=== PATIENT | female | born 1980 | race Caucasian/White ===

== ENCOUNTER 2016-07-15 18:53 | Emergency (ER) | payer BC ==
[~2016-07-15] VITALS: Ht 172.7 cm; Wt 81.8 kg
[~2016-07-15 18:53] MED LIST: ANTIVERT 12.512.5 MG PO; ANTIVERT 25MG25 MG PO; ASPIR-LOW81 MG PO; ASPIR-LOX325 MG PO; ATIVAN 0.50.5 MG/TAB PO; BENTYL 20MG20 MG/TAB; CEPHALEXIN500 M1 PO; CLEOCIN HCL300 MG PO; DILAUDID 4MG TAB4 MG PO; DOXYCYCLINE 10100 MG PO; HYDROMORPHONE HY8 MG; IBUPROFEN; KEPPRA1000 MG PO; KEPPRA500 MG PO; KEPPRA750 MG PO; LAMICTAL100 MG PO; LAMICTAL200 MG PO; LASIX 20MG TABL20 MG PO; LEVOTHYROXINE PO; LEVOXYL0.088 MG; LOPRESSOR 550 MG/TAB PO; MORPHINE 1515 MG/TAB PO; NAPROXEN ER500 MG PO; PEPCID 20MG TAB20 MG PO; PERCOCET 325 MG1 TA2 PO; PERCOCET 325 MG1 TAB PO; PHENERGAN 25 TA25 MG PO; PHENERGAN25 MG RC; PREDNISONE20 MG PO; PROAIR HFA0.09 MG/AC IH; REGLAN 10M10 MG/2 ML IV; SYNTHROID0.075 MG/T PO; SYNTHROID0.125 MG/T PO; TEGRETOL 2200 MG/TA1 PO; VALIUM 5MG T5 MG/TAB PO; ZANTAC 150150 MG PO; ZANTAC 150MG T150 MG PO; ZITHROMAX 250M250 MG PO; ZITHROMAX Z PA250 MG PO; ZOFRAN 4MG T4 MG/TAB PO; ZOFRAN ODT4 MG PO; [UNRECOGNIZED DRUG - OTHER]
[2016-07-15 18:55] VITALS: TEMP 98.3
[2016-07-15 19:46] LABS: PH 5 (5-8); SQUAMOUS EPITHELIAL 0-2 /hpf; URINE APPEARANCE Clear; URINE BACTERIA Rare /hpf; URINE BILIRUBIN Negative (NEGATIVE); URINE BLOOD 1+ (NEGATIVE); URINE COLOR Yellow; URINE GLUCOSE Negative (NEGATIVE); URINE KETONE Negative (NEGATIVE); URINE RBC 0-2 /hpf; URINE UROBILINOGEN Negative (NEGATIVE); URINE WBC 0-2 /hpf
[2016-07-15 19:48] LABS: BASO # 0.3 (0.0-0.2); BASO % 1.9 % (0.0-2.0); EOS # 0.5 (0.0-0.7); GRAN # 9.2 (1.4-6.5); GRAN % 67.4 % (42.2-75.2); HEMATOCRIT 40.3 % (37.0-47.0); HEMOGLOBIN 13.7 g/dl (12.5-16.0); LYMPH # 2.8 (1.2-3.4); LYMPH % 20.9 % (20.0-51.0); MEAN CELL VOLUME 100 fl (80.0-100.0); MEAN CORPUSCULAR HEMOGLOBIN 34 pg (27.0-31.0); MEAN CORPUSCULAR HGB CONC 34 g/dl (33.0-37.0); MEAN PLATELET VOLUME 11.2 fl (7.4-10.4); MONO # 0.7 (0.1-0.6); MONO % 5.3 % (1.7-9.3); PLATELET COUNT 388 K/mm3 (130-400); RED BLOOD COUNT 4.03 M/mm3 (4.10-5.30); REDCELL DISTRIBUTION WIDTH-CV 13.8 % (11.5-14.5); WHITE BLOOD COUNT 13.6 K/mm3 (4.8-10.8)
[2016-07-15 19:54] LABS: ADJUSTED CALCIUM 9.2 mg/dL (8.4-10.2); ALANINE AMINOTRANSFERASE 31 U/L (9-52); ALKALINE PHOSPHATASE 46 U/L (50-136); ANION GAP 14 mmol/L (7-16); BILIRUBIN,TOTAL 0.6 mg/dL (0.0-1.0); BLOOD UREA NITROGEN 11 mg/dL (7-17); CARBON DIOXIDE 21 mmol/L (22-30); CHLORIDE 107 mmol/L (98-107); CREATININE, serum 1.23 mg/dL (0.52-1.25); GLUCOSE 90 mg/dL (74-106); LIPASE 130 U/L (23-300); POTASSIUM 3.7 mmol/L (3.4-5.0); SODIUM 142 mmol/L (137-145); TOTAL PROTEIN 8.3 gm/dL (6.4-8.2)
[2016-07-15 19:57] LABS: C-REACTIVE PROTEIN < 0.5 mg/dL (0.0-0.9)
[2016-07-15] MEDS ORDERED: ZOFRAN 4MG T4 MG/TAB PO (21:02)
[2016-07-15] MEDS ORDERED: PROTONIX 40MG T40 MG PO (21:02)
[2016-07-15] MEDS ORDERED: PERCOCET 325 MG1 TA2 PO (21:02)
[2016-07-15 21:18] VITALS: BP 110/78; PULSE 72
== END 2016-07-15 21:23 | disposition home or self-care (01) ==
LOC: COL.ER 18:53
PROVIDERS: Emergency Medicine
DX: R10.12 Left upper quadrant pain (principal); R19.7 Diarrhea, unspecified
CPT/HCPCS: J1170; J2405; J7030; Q9967

== ENCOUNTER 2016-07-16 22:19 | Observation (INO) | payer BC ==
[~2016-07-16] VITALS: Ht 172.7 cm; Wt 72.8 kg
[~2016-07-16 22:19] MED LIST changes: +PROTONIX 40MG T40 MG PO
[2016-07-16 23:44] LABS: BASO # 0.2 (0.0-0.2); EOS # 0.6 (0.0-0.7); EOS % 4.6 % (0-4.0); GRAN # 6.4 (1.4-6.5); GRAN % 53.3 % (42.2-75.2); LYMPH # 4.2 (1.2-3.4); LYMPH % 34.8 % (20.0-51.0); MEAN CELL VOLUME 99 fl (80.0-100.0); MEAN CORPUSCULAR HGB CONC 34 g/dl (33.0-37.0); MEAN PLATELET VOLUME 11.1 fl (7.4-10.4); MONO # 0.6 (0.1-0.6); PLATELET COUNT 309 K/mm3 (130-400); RED BLOOD COUNT 3.52 M/mm3 (4.10-5.30)
[2016-07-16 23:47] LABS: HEMOGLOBIN 11.8 g/dl (12.5-16.0); MEAN CORPUSCULAR HEMOGLOBIN 34 pg (27.0-31.0)
[2016-07-16 23:54] LABS: ADJUSTED CALCIUM 8.8 mg/dL (8.4-10.2); ALBUMIN 4.3 gm/dL (3.5-5.0); BILIRUBIN,TOTAL 0.5 mg/dL (0.0-1.0); CREATININE, serum 1.17 mg/dL (0.52-1.25); POTASSIUM 3.4 mmol/L (3.4-5.0)
[2016-07-17] VITALS (7 sets, daily range): BP systolic 94–124; BP diastolic 47–67; PULSE 53–75; TEMP 97.8–99
[2016-07-17 00:21] LABS: PH 5 (5-8); SQUAMOUS EPITHELIAL 0-2 /hpf; URINE APPEARANCE Clear; URINE BACTERIA Rare /hpf; URINE BILIRUBIN Negative (NEGATIVE); URINE BLOOD 1+ (NEGATIVE); URINE COLOR Yellow; URINE GLUCOSE Negative (NEGATIVE); URINE KETONE Negative (NEGATIVE); URINE RBC 0-2 /hpf; URINE UROBILINOGEN Negative (NEGATIVE); URINE WBC 0-2 /hpf
[2016-07-17 07:44] LABS: ADD PATHOLOGY DIFF REVIEW NO
[2016-07-17 07:51] LABS: MEAN CELL VOLUME 102 fl (80.0-100.0); MEAN CORPUSCULAR HGB CONC 33 g/dl (33.0-37.0); MEAN PLATELET VOLUME 11.5 fl (7.4-10.4); PLATELET COUNT 330 K/mm3 (130-400); RED BLOOD COUNT 3.38 M/mm3 (4.10-5.30); REDCELL DISTRIBUTION WIDTH-CV 14.1 % (11.5-14.5)
[2016-07-17 08:04] LABS: HEMATOCRIT 34.5 % (37.0-47.0); HEMOGLOBIN 11.5 g/dl (12.5-16.0); MEAN CORPUSCULAR HEMOGLOBIN 34 pg (27.0-31.0)
[2016-07-17 08:19] LABS: ADJUSTED CALCIUM 8.5 mg/dL (8.4-10.2); ALBUMIN 4.1 gm/dL (3.5-5.0); BILIRUBIN,TOTAL 0.5 mg/dL (0.0-1.0); CALCIUM 8.6 mg/dL (8.4-10.2); CREATININE, serum 1.13 mg/dL (0.52-1.25); POTASSIUM 3.9 mmol/L (3.4-5.0); TOTAL PROTEIN 6.8 gm/dL (6.4-8.2)
[2016-07-17 08:43] LABS: BAND 1 % (0-10); EOSINOPHIL 8 % (0-4); NEUTROPHILS 38 % (42.0-75.2); TOTAL CELLS COUNTED 100
[2016-07-17 08:45] LABS: HYPOCHROMIA 1+; POIKILOCYTOSIS 1+
[2016-07-18 04:27] VITALS: BP 96/59; PULSE 60; TEMP 98.5
[2016-07-18 08:14] VITALS: BP 102/58; PULSE 62; TEMP 99.2
== END 2016-07-18 18:05 | disposition home or self-care (01) ==
LOC: COL.ER 22:19 → SURG 07-17 00:25
PROVIDERS: Family Medicine
DX: R10.9 Unspecified abdominal pain (principal); R19.7 Diarrhea, unspecified; R11.2 Nausea with vomiting, unspecified; E44.0 Moderate protein-calorie malnutrition; R63.4 Abnormal weight loss; F17.210 Nicotine dependence, cigarettes, uncomplicated
CPT/HCPCS: C9113; G0378; J1170; J2405; J2550; J7030; J7120

== ENCOUNTER 2016-08-12 19:48 | Emergency (ER) | payer BC ==
[~2016-08-12] VITALS: Ht 172.7 cm; Wt 72.7 kg
[2016-08-12 19:56] VITALS: TEMP 98.6
[2016-08-12] MEDS ORDERED: PREVACID 30MG30 M1 PO (20:01)
[2016-08-12] MEDS ORDERED: BIAXIN 500MG T500 MG PO (20:01)
[2016-08-12] MEDS ORDERED: AMOXICILLIN 50500 MG PO (20:02)
[2016-08-12 20:50] LABS: BASO # 0.2 (0.0-0.2); BASO % 1.2 % (0.0-2.0); EOS # 0.4 (0.0-0.7); EOS % 2.8 % (0-4.0); GRAN # 9.4 (1.4-6.5); GRAN % 72.2 % (42.2-75.2); HEMATOCRIT 39.9 % (37.0-47.0); HEMOGLOBIN 13.9 g/dl (12.5-16.0); LYMPH # 2.5 (1.2-3.4); LYMPH % 19.1 % (20.0-51.0); MEAN CELL VOLUME 98 fl (80.0-100.0); MEAN CORPUSCULAR HEMOGLOBIN 34 pg (27.0-31.0); MEAN CORPUSCULAR HGB CONC 35 g/dl (33.0-37.0); MEAN PLATELET VOLUME 11.2 fl (7.4-10.4); MONO # 0.6 (0.1-0.6); MONO % 4.4 % (1.7-9.3); PLATELET COUNT 304 K/mm3 (130-400); RED BLOOD COUNT 4.06 M/mm3 (4.10-5.30); REDCELL DISTRIBUTION WIDTH-CV 13.3 % (11.5-14.5)
[2016-08-12 20:57] LABS: PH 6 (5-8); SQUAMOUS EPITHELIAL 0-2 /hpf; URINE APPEARANCE Clear; URINE BACTERIA None Seen /hpf; URINE BILIRUBIN Negative (NEGATIVE); URINE BLOOD 1+ (NEGATIVE); URINE COLOR Straw; URINE GLUCOSE Negative (NEGATIVE); URINE KETONE Negative (NEGATIVE); URINE UROBILINOGEN Negative (NEGATIVE); URINE WBC 0-2 /hpf
[2016-08-12 21:19] LABS: ADJUSTED CALCIUM 8.9 mg/dL (8.4-10.2); ALANINE AMINOTRANSFERASE 27 U/L (9-52); ALBUMIN 4.7 gm/dL (3.5-5.0); ALKALINE PHOSPHATASE 39 U/L (50-136); ANION GAP 11 mmol/L (7-16); BILIRUBIN,TOTAL 0.7 mg/dL (0.0-1.0); BLOOD UREA NITROGEN 6 mg/dL (7-17); CALCIUM 9.5 mg/dL (8.4-10.2); CARBON DIOXIDE 26 mmol/L (22-30); CHLORIDE 104 mmol/L (98-107); CREATININE, serum 0.92 mg/dL (0.52-1.25); GLUCOSE 83 mg/dL (74-106); LIPASE 61 U/L (23-300); POTASSIUM 4.1 mmol/L (3.4-5.0); SODIUM 140 mmol/L (137-145); TOTAL PROTEIN 7.6 gm/dL (6.4-8.2)
[2016-08-12 21:23] LABS: C-REACTIVE PROTEIN < 0.5 mg/dL (0.0-0.9)
[2016-08-12] MEDS ORDERED: FLAGYL500 MG PO (22:46)
[2016-08-12] MEDS ORDERED: PERCOCET 325 MG1 TA2 PO (22:46)
[2016-08-12] MEDS ORDERED: ZOFRAN 4MG T4 MG/TAB PO (22:46)
[2016-08-12 22:59] VITALS: BP 114/66; PULSE 68
== END 2016-08-12 23:04 | disposition home or self-care (01) ==
LOC: COL.ER 19:48
PROVIDERS: Emergency Medicine
DX: K52.9 Noninfective gastroenteritis and colitis, unspecified (principal); B96.81 Helicobacter pylori [H. pylori] as the cause of diseases classified elsewhere; K27.9 Peptic ulcer, site unspecified, unspecified as acute or chronic, without hemorrhage or perforation; G40.909 Epilepsy, unspecified, not intractable, without status epilepticus; F17.210 Nicotine dependence, cigarettes, uncomplicated
CPT/HCPCS: J1170; J1630; J2405; J7030; Q9967

== ENCOUNTER 2016-08-17 15:12 | Emergency (ER) | payer BC ==
[~2016-08-17] VITALS: Ht 172.7 cm; Wt 72.7 kg
[~2016-08-17 15:12] MED LIST changes: +AMOXICILLIN 50500 MG PO; +BIAXIN 500MG T500 MG PO; +FLAGYL500 MG PO; +PREVACID 30MG30 M1 PO
[2016-08-17 15:24] VITALS: TEMP 98.4
[2016-08-17 16:23] LABS: BASO # 0.2 (0.0-0.2); BASO % 1.8 % (0.0-2.0); EOS # 0.7 (0.0-0.7); EOS % 6.4 % (0-4.0); GRAN # 5.4 (1.4-6.5); GRAN % 52.1 % (42.2-75.2); HEMOGLOBIN 12.5 g/dl (12.5-16.0); LYMPH # 3.4 (1.2-3.4); LYMPH % 32.9 % (20.0-51.0); MEAN CELL VOLUME 100 fl (80.0-100.0); MEAN CORPUSCULAR HEMOGLOBIN 34 pg (27.0-31.0); MEAN CORPUSCULAR HGB CONC 34 g/dl (33.0-37.0); MEAN PLATELET VOLUME 11.5 fl (7.4-10.4); MONO # 0.7 (0.1-0.6); MONO % 6.4 % (1.7-9.3); PLATELET COUNT 286 K/mm3 (130-400); RED BLOOD COUNT 3.68 M/mm3 (4.10-5.30); REDCELL DISTRIBUTION WIDTH-CV 13.1 % (11.5-14.5); WHITE BLOOD COUNT 10.4 K/mm3 (4.8-10.8)
[2016-08-17 16:25] LABS: HEMATOCRIT 36.8 % (37.0-47.0)
[2016-08-17 16:27] LABS: PH 6 (5-8); SQUAMOUS EPITHELIAL 0-2 /hpf; URINE APPEARANCE Clear; URINE BACTERIA None Seen /hpf; URINE BILIRUBIN Negative (NEGATIVE); URINE BLOOD 1+ (NEGATIVE); URINE COLOR Yellow; URINE GLUCOSE Negative (NEGATIVE); URINE KETONE Negative (NEGATIVE); URINE RBC 0-2 /hpf; URINE UROBILINOGEN Negative (NEGATIVE); URINE WBC None Seen /hpf
[2016-08-17 16:53] LABS: ADJUSTED CALCIUM 8.7 mg/dL (8.4-10.2); ALBUMIN 4.6 gm/dL (3.5-5.0); BILIRUBIN,TOTAL 0.5 mg/dL (0.0-1.0); CALCIUM 9.2 mg/dL (8.4-10.2); CREATININE, serum 0.98 mg/dL (0.52-1.25); POTASSIUM 3.3 mmol/L (3.4-5.0); TOTAL PROTEIN 7.4 gm/dL (6.4-8.2)
[2016-08-17 21:08] VITALS: BP 127/84; PULSE 62
== END 2016-08-17 21:08 | disposition home or self-care (01) ==
LOC: COL.ER 15:12
PROVIDERS: Family Medicine
DX: K59.00 Constipation, unspecified (principal); K29.70 Gastritis, unspecified, without bleeding; B96.81 Helicobacter pylori [H. pylori] as the cause of diseases classified elsewhere
CPT/HCPCS: J1170; J1200; J1630; J1885; J2405; J2930; J7030; Q9967

== ENCOUNTER → 2016-12-28 | Outpatient (CLI) | payer BC ==
[~2016-12-28] MED LIST changes: +CARAFATE 1GM1 G PO; +CHANTIX START M1 TAB PO
== END ==
LOC: COL.RAD 09:45
DX: K80.20 Calculus of gallbladder without cholecystitis without obstruction (principal); G43.A0 Cyclical vomiting, in migraine, not intractable

== ENCOUNTER 2017-01-07 21:10 | Emergency (ER) | payer BC ==
[~2017-01-07] VITALS: Ht 172.7 cm; Wt 76.4 kg
[~2017-01-07 21:10] MED LIST changes: -CARAFATE 1GM1 G PO; -CHANTIX START M1 TAB PO
[2017-01-07] MEDS ORDERED: PROTONIX 40MG T40 MG PO (21:45)
[2017-01-07] MEDS ORDERED: CARAFATE 1GM1 G PO (21:46)
[2017-01-07] MEDS ORDERED: CHANTIX START M1 TAB PO (21:46)
[2017-01-07 21:58] LABS: BASO # 0.1 (0.0-0.2); BASO % 1.2 % (0.0-2.0); EOS # 0.3 (0.0-0.7); EOS % 2.3 % (0-4.0); GRAN # 6.5 (1.4-6.5); GRAN % 60.7 % (42.2-75.2); HEMOGLOBIN 13.4 g/dl (12.5-16.0); LYMPH # 3.4 (1.2-3.4); LYMPH % 31.8 % (20.0-51.0); MEAN CELL VOLUME 95 fl (80.0-100.0); MEAN CORPUSCULAR HEMOGLOBIN 33 pg (27.0-31.0); MEAN CORPUSCULAR HGB CONC 34 g/dl (33.0-37.0); MEAN PLATELET VOLUME 10.4 fl (7.4-10.4); MONO # 0.4 (0.1-0.6); MONO % 3.7 % (1.7-9.3); PLATELET COUNT 339 K/mm3 (130-400); RED BLOOD COUNT 4.09 M/mm3 (4.10-5.30); WHITE BLOOD COUNT 10.7 K/mm3 (4.8-10.8)
[2017-01-07 22:10] LABS: ALBUMIN 5.1 gm/dL (3.5-5.0); BILIRUBIN,TOTAL 0.6 mg/dL (0.0-1.0); CALCIUM 9.9 mg/dL (8.4-10.2); CREATININE, serum 0.9 mg/dL (0.52-1.25); POTASSIUM 3.8 mmol/L (3.4-5.0); TOTAL PROTEIN 8.5 gm/dL (6.4-8.2)
[2017-01-07] MEDS ORDERED: PERCOCET 325 MG1 TA2 PO (22:36)
[2017-01-07 22:39] VITALS: BP 133/74; PULSE 72
== END 2017-01-07 22:49 | disposition home or self-care (01) ==
LOC: COL.ER 21:10
PROVIDERS: Nurse Practitioner
DX: R10.11 Right upper quadrant pain (principal); K21.9 Gastro-esophageal reflux disease without esophagitis; F17.210 Nicotine dependence, cigarettes, uncomplicated
CPT/HCPCS: J2270; J2550

== ENCOUNTER 2017-01-24 18:08 | Emergency (ER) | payer BC ==
[~2017-01-24] VITALS: Ht 172.7 cm; Wt 76.4 kg
[~2017-01-24 18:08] MED LIST changes: +CARAFATE 1GM1 G PO; +CHANTIX START M1 TAB PO
[2017-01-24 18:12] VITALS: TEMP 97.9
[2017-01-24] MEDS ORDERED: SYNTHROID0.2 MG/TAB PO (18:17)
[2017-01-24 18:52] LABS: BASO # 0.2 (0.0-0.2); BASO % 2.1 % (0.0-2.0); EOS # 0.6 (0.0-0.7); EOS % 7.3 % (0-4.0); GRAN # 3.2 (1.4-6.5); GRAN % 42.3 % (42.2-75.2); LYMPH # 3.2 (1.2-3.4); LYMPH % 42.5 % (20.0-51.0); MEAN CELL VOLUME 100 fl (80.0-100.0); MEAN CORPUSCULAR HGB CONC 33 g/dl (33.0-37.0); MEAN PLATELET VOLUME 9.9 fl (7.4-10.4); MONO # 0.4 (0.1-0.6); MONO % 5.7 % (1.7-9.3); PLATELET COUNT 359 K/mm3 (130-400); RED BLOOD COUNT 3.57 M/mm3 (4.10-5.30); REDCELL DISTRIBUTION WIDTH-CV 13.1 % (11.5-14.5); WHITE BLOOD COUNT 7.6 K/mm3 (4.8-10.8)
[2017-01-24 18:55] LABS: HEMATOCRIT 35.8 % (37.0-47.0); HEMOGLOBIN 11.7 g/dl (12.5-16.0); MEAN CORPUSCULAR HEMOGLOBIN 33 pg (27.0-31.0)
[2017-01-24 18:57] LABS: PH 5 (5-8); URINE APPEARANCE Hazy; URINE BACTERIA None Seen /hpf; URINE BILIRUBIN Negative (NEGATIVE); URINE BLOOD 2+ (NEGATIVE); URINE COLOR Yellow; URINE GLUCOSE Negative (NEGATIVE); URINE KETONE Negative (NEGATIVE); URINE UROBILINOGEN Negative (NEGATIVE); URINE WBC 0-2 /hpf
[2017-01-24 19:07] LABS: ADJUSTED CALCIUM 8.9 mg/dL (8.4-10.2); ALBUMIN 4.8 gm/dL (3.5-5.0); BILIRUBIN,TOTAL 0.4 mg/dL (0.0-1.0); CALCIUM 9.5 mg/dL (8.4-10.2); CREATININE, serum 0.91 mg/dL (0.52-1.25); POTASSIUM 3.7 mmol/L (3.4-5.0); TOTAL PROTEIN 7.9 gm/dL (6.4-8.2)
[2017-01-24 21:32] VITALS: BP 98/65; PULSE 61
[2017-01-24] MEDS ORDERED: PERCOCET 325 MG1 TA2 PO (21:32)
== END 2017-01-24 21:41 | disposition home or self-care (01) ==
LOC: COL.ER 18:08
PROVIDERS: Emergency Medicine
DX: R09.1 Pleurisy (principal); F17.210 Nicotine dependence, cigarettes, uncomplicated; Z90.710 Acquired absence of both cervix and uterus; Z86.79 Personal history of other diseases of the circulatory system; Z90.49 Acquired absence of other specified parts of digestive tract; Z90.89 Acquired absence of other organs
CPT/HCPCS: J2270; J2405; J3010; Q9967

== ENCOUNTER 2017-11-28 16:42 | Emergency (ER) | payer BC ==
[~2017-11-28] VITALS: Ht 172.7 cm; Wt 70.5 kg
[~2017-11-28 16:42] MED LIST changes: +BENTYL 10MG10 MG/CAP PO; +SYNTHROID0.2 MG/TAB PO
[2017-11-28 16:55] VITALS: TEMP 98.5
[2017-11-28 17:53] LABS: COLLECTION METHOD CATHETER
[2017-11-28 17:58] LABS: BASO # 0.1 (0.0-0.2); BASO % 1.6 % (0.0-2.0); EOS # 0.5 (0.0-0.7); EOS % 5.6 % (0-4.0); GRAN # 3.6 (1.4-6.5); GRAN % 45.4 % (42.2-75.2); LYMPH # 3.2 (1.2-3.4); LYMPH % 40.4 % (20.0-51.0); MEAN CELL VOLUME 97 fl (80.0-100.0); MEAN CORPUSCULAR HEMOGLOBIN 33 pg (27.0-31.0); MEAN CORPUSCULAR HGB CONC 34 g/dl (33.0-37.0); MEAN PLATELET VOLUME 10.3 fl (7.4-10.4); MONO # 0.6 (0.1-0.6); MONO % 6.9 % (1.7-9.3); PLATELET COUNT 246 K/mm3 (130-400); RED BLOOD COUNT 3.31 M/mm3 (4.10-5.30); REDCELL DISTRIBUTION WIDTH-CV 13.7 % (11.5-14.5)
[2017-11-28 17:59] LABS: HEMATOCRIT 32.2 % (37.0-47.0)
[2017-11-28 18:01] LABS: MUCOUS Present /lpf; PH 5 (5-8); SQUAMOUS EPITHELIAL 0-2 /hpf; URINE APPEARANCE Clear; URINE BACTERIA None Seen /hpf; URINE BILIRUBIN Negative (NEGATIVE); URINE BLOOD 1+ (NEGATIVE); URINE COLOR Straw; URINE GLUCOSE Negative (NEGATIVE); URINE KETONE Negative (NEGATIVE); URINE LEUKOCYTE ESTERASE Negative (NEGATIVE); URINE NITRATE Negative (NEGATIVE); URINE PROTEIN(semi-quant) Negative (NEGATIVE); URINE RBC 0-2 /hpf; URINE UROBILINOGEN Negative (NEGATIVE)
[2017-11-28 18:11] LABS: ALBUMIN 4.1 gm/dL (3.5-5.0); BILIRUBIN,TOTAL 0.1 mg/dL (0.0-1.0); C-REACTIVE PROTEIN 0.6 mg/dL (0.0-0.9); CALCIUM 8.7 mg/dL (8.4-10.2); CREATININE, serum 1.11 mg/dL (0.52-1.25); POTASSIUM 3.8 mmol/L (3.4-5.0); TOTAL PROTEIN 6.9 gm/dL (6.4-8.2)
[2017-11-28] MEDS ORDERED: FLAGYL500 MG PO (21:18)
[2017-11-28] MEDS ORDERED: CIPRO 500MG TA500 MG PO (21:18)
[2017-11-28] MEDS ORDERED: PROMETHAZINE12.5 M5 PO (21:19)
[2017-11-28] MEDS ORDERED: PERCOCET 325 MG1 TA2 PO (22:24)
[2017-11-28 22:27] VITALS: BP 106/67; PULSE 60
== END 2017-11-28 22:59 | disposition home or self-care (01) ==
LOC: COL.ER 16:42
PROVIDERS: Physician Assistant
DX: K52.9 Noninfective gastroenteritis and colitis, unspecified (principal); R11.0 Nausea; F17.210 Nicotine dependence, cigarettes, uncomplicated; E03.9 Hypothyroidism, unspecified; K27.9 Peptic ulcer, site unspecified, unspecified as acute or chronic, without hemorrhage or perforation; Z90.710 Acquired absence of both cervix and uterus; Z90.89 Acquired absence of other organs; Z90.49 Acquired absence of other specified parts of digestive tract
CPT/HCPCS: J0744; J2405; J3010; J7030; Q9967

== ENCOUNTER 2017-12-03 14:00 | Emergency (ER) | payer BC ==
[~2017-12-03] VITALS: Ht 172.7 cm; Wt 72.7 kg
[~2017-12-03 14:00] MED LIST changes: +CIPRO 500MG TA500 MG PO; +PROMETHAZINE12.5 M5 PO
[2017-12-03 14:04] VITALS: TEMP 98.5
[2017-12-03 14:24] LABS: COLLECTION METHOD CLEAN CATCH
[2017-12-03 14:30] LABS: PH 8 (5-8); SQUAMOUS EPITHELIAL 0-2 /hpf; URINE APPEARANCE Clear; URINE BACTERIA None Seen /hpf; URINE BILIRUBIN Negative (NEGATIVE); URINE BLOOD Negative (NEGATIVE); URINE COLOR Yellow; URINE GLUCOSE Negative (NEGATIVE); URINE KETONE Negative (NEGATIVE); URINE LEUKOCYTE ESTERASE Negative (NEGATIVE); URINE NITRATE Negative (NEGATIVE); URINE PROTEIN(semi-quant) Negative (NEGATIVE); URINE RBC 0-2 /hpf; URINE UROBILINOGEN Negative (NEGATIVE)
[2017-12-03 14:51] LABS: BASO # 0.1 (0.0-0.2); BASO % 1.2 % (0.0-2.0); EOS # 0.4 (0.0-0.7); EOS % 4.9 % (0-4.0); GRAN # 5.7 (1.4-6.5); GRAN % 69.8 % (42.2-75.2); LYMPH # 1.5 (1.2-3.4); LYMPH % 18.4 % (20.0-51.0); MEAN CELL VOLUME 98 fl (80.0-100.0); MEAN CORPUSCULAR HEMOGLOBIN 34 pg (27.0-31.0); MEAN CORPUSCULAR HGB CONC 34 g/dl (33.0-37.0); MEAN PLATELET VOLUME 10.6 fl (7.4-10.4); MONO # 0.4 (0.1-0.6); MONO % 5.3 % (1.7-9.3); PLATELET COUNT 238 K/mm3 (130-400); RED BLOOD COUNT 3.58 M/mm3 (4.10-5.30); REDCELL DISTRIBUTION WIDTH-CV 13.5 % (11.5-14.5)
[2017-12-03 14:55] LABS: HEMATOCRIT 35.2 % (37.0-47.0)
[2017-12-03 15:02] LABS: ALBUMIN 4.1 gm/dL (3.5-5.0); BILIRUBIN,TOTAL 0.3 mg/dL (0.0-1.0); C-REACTIVE PROTEIN 0.6 mg/dL (0.0-0.9); CREATININE, serum 0.94 mg/dL (0.52-1.25); POTASSIUM 3.6 mmol/L (3.4-5.0); TOTAL PROTEIN 6.8 gm/dL (6.4-8.2)
[2017-12-03] MEDS ORDERED: PROTONIX 40MG T40 MG PO (16:58)
[2017-12-03] MEDS ORDERED: CARAFATE S1 GM/10 ML PO (16:58)
[2017-12-03] MEDS ORDERED: PHENERGAN 25 TA25 MG PO (16:58)
[2017-12-03 17:27] VITALS: BP 115/71; PULSE 68
== END 2017-12-03 17:27 | disposition home or self-care (01) ==
LOC: COL.ER 14:00
PROVIDERS: Emergency Medicine
DX: K52.9 Noninfective gastroenteritis and colitis, unspecified (principal); Z90.49 Acquired absence of other specified parts of digestive tract; Z79.891 Long term (current) use of opiate analgesic
CPT/HCPCS: C9113; J0780; J1170; J7030

== ENCOUNTER 2018-05-05 17:37 | Emergency (ER) | payer SELFPAY ==
[~2018-05-05] VITALS: Ht 172.7 cm; Wt 72.7 kg
[~2018-05-05 17:37] MED LIST changes: +CARAFATE S1 GM/10 ML PO
[2018-05-05 18:00] VITALS: BP 126/76
[2018-05-05] MEDS ORDERED: VALTREX1 GM PO (18:11)
[2018-05-05 18:21] VITALS: PULSE 80
== END 2018-05-05 18:21 | disposition home or self-care (01) ==
LOC: COL.ER 17:37
DX: B02.9 Zoster without complications (principal)

== ENCOUNTER 2018-06-28 18:28 | Emergency (ER) | payer SELFPAY ==
[~2018-06-28] VITALS: Ht 172.7 cm; Wt 72.7 kg
[~2018-06-28 18:28] MED LIST changes: +VALTREX1 GM PO
[2018-06-28 18:31] VITALS: BP 123/76; TEMP 97.4
[2018-06-28 20:17] VITALS: PULSE 75
== END 2018-06-28 20:17 | disposition home or self-care (01) ==
LOC: COL.ER 18:28
DX: S92.351A Displaced fracture of fifth metatarsal bone, right foot, initial encounter for closed fracture (principal); X50.1XXA Overexertion from prolonged static or awkward postures, initial encounter; Y92.009 Unspecified place in unspecified non-institutional (private) residence as the place of occurrence of the external cause

== ENCOUNTER 2018-09-16 20:28 | Emergency (ER) | payer SELFPAY ==
[~2018-09-16] VITALS: Ht 172.7 cm; Wt 74.5 kg
[2018-09-16 20:32] VITALS: TEMP 97.3
[2018-09-16 21:09] LABS: BASO # 0.2 (0.0-0.2); BASO % 1.5 % (0.0-2.0); EOS # 0.4 (0.0-0.7); EOS % 4.2 % (0-4.0); GRAN # 5.4 (1.4-6.5); GRAN % 52.3 % (42.2-75.2); HEMOGLOBIN 12.1 g/dl (12.5-16.0); LYMPH # 3.7 (1.2-3.4); LYMPH % 35.5 % (20.0-51.0); MEAN CELL VOLUME 102 fl (80.0-100.0); MEAN CORPUSCULAR HEMOGLOBIN 35 pg (27.0-31.0); MEAN CORPUSCULAR HGB CONC 34 g/dl (33.0-37.0); MEAN PLATELET VOLUME 11.7 fl (7.4-10.4); MONO # 0.7 (0.1-0.6); MONO % 6.3 % (1.7-9.3); PLATELET COUNT 141 K/mm3 (130-400); RED BLOOD COUNT 3.51 M/mm3 (4.10-5.30); REDCELL DISTRIBUTION WIDTH-CV 12.9 % (11.5-14.5)
[2018-09-16 21:11] LABS: HEMATOCRIT 35.7 % (37.0-47.0)
[2018-09-16 21:15] LABS: COLLECTION METHOD CLEAN CATCH
[2018-09-16] MEDS ORDERED: KEPPRA1000 MG PO (21:17)
[2018-09-16] MEDS ORDERED: TEGRETOL X200 MG/TA1 PO (21:17)
[2018-09-16 21:22] LABS: ALANINE AMINOTRANSFERASE 18 U/L (9-52); ALBUMIN 4.6 gm/dL (3.5-5.0); ALKALINE PHOSPHATASE 47 U/L (50-136); ANION GAP 11 mmol/L (7-16); AST,SGOT 40 U/L (15-37); BILIRUBIN,TOTAL 0.2 mg/dL (0.0-1.0); BLOOD UREA NITROGEN 16 mg/dL (7-17); CALCIUM 9.4 mg/dL (8.4-10.2); CARBON DIOXIDE 23 mmol/L (22-30); CHLORIDE 108 mmol/L (98-107); CREATININE, serum 1.12 (0.52-1.25); GLUCOSE 83 mg/dL (74-106); LIPASE 108 U/L (23-300); POTASSIUM 4.1 mmol/L (3.4-5.0); SODIUM 142 mmol/L (137-145); TOTAL PROTEIN 7.8 gm/dL (6.4-8.2)
[2018-09-16 21:25] LABS: MUCOUS Present /lpf; PH 6 (5-8); SQUAMOUS EPITHELIAL 0-2 /hpf; URINE APPEARANCE Clear; URINE BACTERIA Rare /hpf; URINE BILIRUBIN Negative (NEGATIVE); URINE BLOOD 2+ (NEGATIVE); URINE COLOR Straw; URINE GLUCOSE Negative (NEGATIVE); URINE KETONE Negative (NEGATIVE); URINE LEUKOCYTE ESTERASE Negative (NEGATIVE); URINE NITRATE Negative (NEGATIVE); URINE PROTEIN(semi-quant) Negative (NEGATIVE); URINE UROBILINOGEN Negative (NEGATIVE)
[2018-09-16 21:30] LABS: C-REACTIVE PROTEIN < 0.5 mg/dL (0.0-0.9)
[2018-09-16 21:31] LABS: TROPONIN-I < 0.012 ng/mL (0.000-0.035)
[2018-09-16] MEDS ORDERED: PERCOCET 325 MG1 TA2 PO (23:37)
[2018-09-16] MEDS ORDERED: ZOFRAN 4MG T4 MG/TAB PO (23:37)
[2018-09-16 23:55] VITALS: BP 137/79; PULSE 71
== END 2018-09-16 23:55 | disposition home or self-care (01) ==
LOC: COL.ER 20:28
PROVIDERS: Emergency Medicine
DX: R10.12 Left upper quadrant pain (principal); F17.210 Nicotine dependence, cigarettes, uncomplicated; Z90.49 Acquired absence of other specified parts of digestive tract; Z90.710 Acquired absence of both cervix and uterus
CPT/HCPCS: J1885; J2405; J3010; J7030; Q9967

== ENCOUNTER 2018-12-23 23:39 | Emergency (ER) | payer SELFPAY ==
[~2018-12-23] VITALS: Ht 172.7 cm; Wt 74.5 kg
[~2018-12-23 23:39] MED LIST changes: +TEGRETOL X200 MG/TA1 PO
[2018-12-23 23:49] VITALS: BP 109/75; TEMP 98.3
[2018-12-24] MEDS ORDERED: FLEXERIL 1010 MG/TAB PO (00:06)
[2018-12-24 00:47] LABS: COLLECTION METHOD CLEAN CATCH
[2018-12-24 00:52] LABS: MUCOUS Present /lpf; PH 5 (5-8); URINE APPEARANCE Hazy; URINE BACTERIA Rare /hpf; URINE BILIRUBIN Negative (NEGATIVE); URINE BLOOD Negative (NEGATIVE); URINE COLOR Yellow; URINE GLUCOSE Negative (NEGATIVE); URINE KETONE Negative (NEGATIVE); URINE LEUKOCYTE ESTERASE Negative (NEGATIVE); URINE NITRATE Negative (NEGATIVE); URINE PROTEIN(semi-quant) Negative (NEGATIVE); URINE UROBILINOGEN Negative (NEGATIVE)
[2018-12-24] MEDS ORDERED: LIDODERM 5% PATC1 EA TP (02:33)
[2018-12-24 02:44] VITALS: PULSE 78
== END 2018-12-24 02:44 | disposition home or self-care (01) ==
LOC: COL.ER 23:39
PROVIDERS: Emergency Medicine
DX: M54.5 Low back pain (principal); G40.909 Epilepsy, unspecified, not intractable, without status epilepticus; F17.210 Nicotine dependence, cigarettes, uncomplicated; Z90.710 Acquired absence of both cervix and uterus
CPT/HCPCS: J1170; J1885; J3010

== ENCOUNTER 2019-01-05 13:21 | Emergency (ER) | payer SELFPAY ==
[~2019-01-05] VITALS: Ht 172.7 cm; Wt 75.0 kg
[~2019-01-05 13:21] MED LIST changes: +FLEXERIL 1010 MG/TAB PO; +LIDODERM 5% PATC1 EA TP
[2019-01-05 14:15] VITALS: BP 113/76; TEMP 98.7
[2019-01-05] MEDS ORDERED: PERCOCET 325 MG1 TA2 PO (16:43)
[2019-01-05] MEDS ORDERED: FLEXERIL 1010 MG/TAB PO (16:43)
[2019-01-05] MEDS ORDERED: MEDROL 4MG DOSPA4 MG PO (16:43)
[2019-01-05 16:56] LABS: COLLECTION METHOD CLEAN CATCH
[2019-01-05 17:03] LABS: PH 7 (5-8); SQUAMOUS EPITHELIAL 0-2 /hpf; URINE APPEARANCE Clear; URINE BACTERIA None Seen /hpf; URINE BILIRUBIN Negative (NEGATIVE); URINE BLOOD 2+ (NEGATIVE); URINE COLOR Straw; URINE GLUCOSE Negative (NEGATIVE); URINE KETONE Negative (NEGATIVE); URINE LEUKOCYTE ESTERASE Negative (NEGATIVE); URINE NITRATE Negative (NEGATIVE); URINE PROTEIN(semi-quant) Negative (NEGATIVE); URINE RBC 0-2 /hpf; URINE UROBILINOGEN Negative (NEGATIVE)
[2019-01-05 17:50] VITALS: PULSE 71
== END 2019-01-05 18:00 | disposition home or self-care (01) ==
LOC: COL.ER 13:21
PROVIDERS: Emergency Medicine
DX: M54.5 Low back pain (principal); K21.9 Gastro-esophageal reflux disease without esophagitis; G40.909 Epilepsy, unspecified, not intractable, without status epilepticus; F17.210 Nicotine dependence, cigarettes, uncomplicated; Z90.710 Acquired absence of both cervix and uterus
CPT/HCPCS: J3010; J7512

== ENCOUNTER 2019-01-30 17:00 | Inpatient (IN) | payer SELFPAY ==
[~2019-01-30] VITALS: Ht 172.7 cm; Wt 71.2 kg
[~2019-01-30 17:00] MED LIST changes: +MEDROL 4MG DOSPA4 MG PO
[2019-01-30 18:30] LABS: BASO # 0.1 (0.0-0.2); BASO % 0.5 % (0.0-2.0); EOS % 0.1 % (0-4.0); GRAN # 10.6 (1.4-6.5); GRAN % 80.7 % (42.2-75.2); HEMATOCRIT 39.8 % (37.0-47.0); HEMOGLOBIN 13.5 g/dl (12.5-16.0); LYMPH # 1.5 (1.2-3.4); LYMPH % 11.2 % (20.0-51.0); MEAN CELL VOLUME 102 fl (80.0-100.0); MEAN CORPUSCULAR HEMOGLOBIN 35 pg (27.0-31.0); MEAN CORPUSCULAR HGB CONC 34 g/dl (33.0-37.0); MEAN PLATELET VOLUME 10.4 fl (7.4-10.4); MONO # 0.9 (0.1-0.6); PLATELET COUNT 410 K/mm3 (130-400); RED BLOOD COUNT 3.89 M/mm3 (4.10-5.30); REDCELL DISTRIBUTION WIDTH-CV 13.1 % (11.5-14.5)
[2019-01-30 18:35] LABS: ALBUMIN 4.6 gm/dL (3.5-5.0); BILIRUBIN,TOTAL 0.2 mg/dL (0.0-1.0); CALCIUM 8.9 mg/dL (8.4-10.2); CREATININE, serum 0.99 (0.52-1.25); POTASSIUM 3.9 mmol/L (3.4-5.0); TOTAL PROTEIN 7.6 gm/dL (6.4-8.2)
[2019-01-30 19:00] LABS: COLLECTION METHOD CATHETER
[2019-01-30 19:11] LABS: MUCOUS Present /lpf; PH 5 (5-8); SQUAMOUS EPITHELIAL 0-2 /hpf; URINE APPEARANCE Hazy; URINE BACTERIA Rare /hpf; URINE BILIRUBIN Negative (NEGATIVE); URINE BLOOD 2+ (NEGATIVE); URINE COLOR Amber; URINE GLUCOSE Negative (NEGATIVE); URINE KETONE Trace (NEGATIVE); URINE LEUKOCYTE ESTERASE Negative (NEGATIVE); URINE NITRATE Negative (NEGATIVE); URINE PROTEIN(semi-quant) Negative (NEGATIVE); URINE UROBILINOGEN >=4.0 mg/dL (NEGATIVE)
--- NOTE | 2019-01-30 22:40 | NUR ---
Patient arrived to unit from ED. Patient able to ambulate in room independedntly. Patient has active bowel sounds. States stomach is cramping and is getting a headache. Temperature is elevated, all other vital signs stable.
[2019-01-30 23:52] VITALS: BP 103/65; PULSE 54; TEMP 101.3
[2019-01-31] MEDS ORDERED: EXCEDRIN1 TAB PO (00:49)
[2019-01-31 03:23] VITALS: BP 105/62; PULSE 63; TEMP 100.5
--- NOTE | 2019-01-31 05:38 | NUR ---
Since arriving on the floor patient has been resting in bed. Patient has been complaining of nausea and pain. Phenergan did relieve the nausea. Tylenol was given for fever, did not really relieve pain. Patient has had a small bowel movement.
[2019-01-31 06:57] LABS: BASO # 0.1 (0.0-0.2); BASO % 0.7 % (0.0-2.0); EOS # 0.1 (0.0-0.7); EOS % 0.9 % (0-4.0); GRAN # 8.9 (1.4-6.5); GRAN % 73.5 % (42.2-75.2); LYMPH # 1.8 (1.2-3.4); MEAN CELL VOLUME 99 fl (80.0-100.0); MEAN CORPUSCULAR HGB CONC 34 g/dl (33.0-37.0); MEAN PLATELET VOLUME 10.4 fl (7.4-10.4); MONO # 1.1 (0.1-0.6); MONO % 9.5 % (1.7-9.3); PLATELET COUNT 360 K/mm3 (130-400); RED BLOOD COUNT 3.32 M/mm3 (4.10-5.30); REDCELL DISTRIBUTION WIDTH-CV 13.1 % (11.5-14.5)
[2019-01-31 07:08] LABS: CREATININE, serum 0.8 (0.52-1.25); POTASSIUM 3.6 mmol/L (3.4-5.0)
[2019-01-31 07:10] LABS: HEMOGLOBIN 11.2 g/dl (12.5-16.0); MEAN CORPUSCULAR HEMOGLOBIN 34 pg (27.0-31.0)
[2019-01-31 07:38] VITALS: BP 106/68; PULSE 60; TEMP 99.5
--- NOTE | 2019-01-31 10:10 | NUR ---
Initial visit; Patient thanked Community Relations Director for stopping by and keeping her in Community Relations Director's prayers.
[2019-01-31 12:48] VITALS: BP 108/65; PULSE 53; TEMP 99.5
--- NOTE | 2019-01-31 14:46 | NUR ---
SHEREEN met with the patient to discuss discharge plan. The patient lives in [place] with her , Timur (ph#[phone]). She reports independence with with ADLs and does not have any DME. The patient does not have a PCP at this and she was not interested with SW setting her up with one. She states that she knows who she wants to be set up with and plans to do so herself. She receives her medications at [facility]. She reports occasional difficulties affording her meds. The patient is self pay. Financial Counseling was notified. The patient states that her and her are looking into getting insurance soon. The patient does not have advanced directives completed and she was not interested in completing them at this time. The patient plans to return back home with her upon discharge. No other identified needs at this time.
[2019-01-31 16:00] VITALS: BP 97/54; PULSE 55; TEMP 98.5
--- NOTE | 2019-01-31 19:00 | NUR ---
PT HAS NEEDED PRN PAIN MEDS THIS SHIFT, RECIEVED DILADID AND NEEDED TYLENOL AT THE SAME TIME, HAS C/O HEADACHE WELL. RECIEVED ABX AND NS WITHOUT ISSUES. PT STARTED BOWEL PREP THIS EVENING, INFORMED PT THAT SHE IS TO DRINK THE GOLYTLE BY MIDNIGHT, THAT SHE COULD ALSO HAVE THE COMMODE BROUGHT TO THE BEDSIDE IF NEEDED DUE TO BOWEL PREP. PT ATE A YOUGERT EARLY IN THE AFTERNOON, STATED SHE WAS WORRIED ABOUT GETTING YEAST INFECTION WITH THE ABX, CLEAR LIQUID DIET MAINTAINED OTHERWISE. INFORMED PT OF NPO STATUS AT MIDNIGHT. PT HAS C/O ZAUSEA, AND NEEDED A COUPLE DOESES OF ZOFRAN, WHICH SEEMED TO HELP MOST OF THE DAY AFTER AM DOSE WAS GIVEN, SCHEDULE PRE-BOWEL PREP ZOFRAN GIVEN, PT VOICED SHE HAD NEEDED DOSE AT THAT TIME AND WAS GLAD SHE WAS GETTING IT. GASTRIC PANEL WAS OBTIANED, PT HAD C/O SOME BLOODINESS TO STOOL THIS EVENING, THIS NURSE INFORMED PT THAT DURING COLONOSCOPY TOMORROW THAT WOULD BE TAKEN CARE OF THAT THERE IS ANY BLEEDING SEEN THEY COULD COTERIZE IT TO STOP THE BLEEDING, PT VOICED UNDERSTANDING AND STATED THAT IT WAS A GOOD THING THEY WHERE GOING TO DO IT THEN. LOW GRADE TEMP THIS AM WHICH RESLOVED LATER IN DAY AND THEN PT HAS NEEDED TYLENOL FOR PAIN, WHICH WOULD HAVE SUBSIDED ANY OTHER TEMPS.
[2019-01-31 19:42] VITALS: BP 100/59; PULSE 50; TEMP 98.5
[2019-01-31 23:47] VITALS: BP 104/62; PULSE 62; TEMP 98.2
[2019-02-01 04:22] VITALS: BP 102/59; PULSE 55; TEMP 98.5
[2019-02-01 06:13] LABS: BASO # 0.1 (0.0-0.2); BASO % 0.7 % (0.0-2.0); EOS # 0.4 (0.0-0.7); EOS % 2.8 % (0-4.0); GRAN # 9.1 (1.4-6.5); GRAN % 72.1 % (42.2-75.2); HEMOGLOBIN 10.9 g/dl (12.5-16.0); LYMPH # 2.3 (1.2-3.4); LYMPH % 18.3 % (20.0-51.0); MEAN CELL VOLUME 102 fl (80.0-100.0); MEAN CORPUSCULAR HEMOGLOBIN 35 pg (27.0-31.0); MEAN CORPUSCULAR HGB CONC 34 g/dl (33.0-37.0); MEAN PLATELET VOLUME 10.4 fl (7.4-10.4); MONO # 0.7 (0.1-0.6); MONO % 5.7 % (1.7-9.3); PLATELET COUNT 350 K/mm3 (130-400); RED BLOOD COUNT 3.11 M/mm3 (4.10-5.30); REDCELL DISTRIBUTION WIDTH-CV 13.3 % (11.5-14.5)
[2019-02-01 06:18] LABS: HEMATOCRIT 31.8 % (37.0-47.0)
[2019-02-01 06:23] LABS: CALCIUM 7.5 mg/dL (8.4-10.2); CREATININE, serum 0.66 (0.52-1.25); POTASSIUM 3.4 mmol/L (3.4-5.0)
--- NOTE | 2019-02-01 07:58 | NUR ---
Pt continues to be in Droplet Isol. Takes Dilaudid for pain. Pain controlled fair with med. NPO since midnight. Stool this AM was clear with few speks. Up ad bindu in room. IV intact R AC with NS infusing at 125mL/hr. Call light within reach. Consent signed and on chart.
--- NOTE | 2019-02-01 10:40 | NUR ---
Follow-up visit; Taximeter Repairer helped patient's robe up and extended God's blessings for Lakeisha and their family.
[2019-02-01 12:57] VITALS: BP 104/70; PULSE 83; TEMP 98.2
[2019-02-01 16:40] VITALS: BP 105/68; PULSE 55; TEMP 98.3
--- NOTE | 2019-02-01 18:00 | NUR ---
PT HAS NEEDED PAIN MEDS REGURLARLY, AND ANTINAUSEA MEDS. PT WAS ABLE TO FINISH DRINKING GOLYLE BOWEL PREP THIS SHIFT, STATES THAT SHE HASNT HAD MUCH STOOL AT ALL, STATED SHE HAS HAD SOME BLOOD IN STOOLS. PT NEEDED ONE DOSE OF FIORICET TODAY AFTER ADMINITERING SUB Q RELISTOR. SHE STATED THAT THE RELISTOR GAVE HER A HEADACHE. IV FLUIDS INFUSING, IV SITE RESTARTED DUE TO SOME LEAKINESS. PT HAS C/O ABD BLOATING, NOTED DISTENSION SEEN. PT STATES THAT HER STOMACH IS VERY GLURGLY.
--- NOTE | 2019-02-01 19:45 | NUR ---
Assessment complete. IV right hand without complications. Patient reports 8/ ABD pain. Provided with PRN dilaudid. Request phenergan-pharmacy to mix and bring to floor. Denies other needs at this time. Call light in reach.
[2019-02-01 20:09] VITALS: BP 106/62; PULSE 55; TEMP 98.4
[2019-02-01 23:02] VITALS: BP 100/65; PULSE 52; TEMP 97.8
--- NOTE | 2019-02-02 01:35 | NUR ---
Patient reports 9/10 ABD pain. Has not had bowel movement thus far. Provided with PRN dilaudid per patient request. Denies other needs at this time. Call light in reach.
[2019-02-02 04:58] VITALS: BP 101/59; PULSE 50; TEMP 97.3
--- NOTE | 2019-02-02 06:29 | NUR ---
Patient did not have any bowel movements throughout night. Reports "my stomach is gurgling lower than it ever has." Required dilaudid Q3H as requested each time by patient for ABD pain rating 7-9/10. Otherwise uneventful night. Resting in bed this AM. Call light in reach.
--- NOTE | 2019-02-02 06:51 | NUR ---
Report given to CALLY Suazo
[2019-02-02 07:03] LABS: BASO # 0.1 (0.0-0.2); BASO % 1.3 % (0.0-2.0); EOS # 0.5 (0.0-0.7); EOS % 5.7 % (0-4.0); GRAN # 4.6 (1.4-6.5); GRAN % 52.8 % (42.2-75.2); LYMPH % 34.6 % (20.0-51.0); MEAN CELL VOLUME 104 fl (80.0-100.0); MEAN CORPUSCULAR HGB CONC 33 g/dl (33.0-37.0); MEAN PLATELET VOLUME 10.7 fl (7.4-10.4); MONO # 0.5 (0.1-0.6); MONO % 5.3 % (1.7-9.3); PLATELET COUNT 317 K/mm3 (130-400); RED BLOOD COUNT 2.82 M/mm3 (4.10-5.30); REDCELL DISTRIBUTION WIDTH-CV 13.2 % (11.5-14.5)
[2019-02-02 07:16] LABS: CALCIUM 7.2 mg/dL (8.4-10.2); CREATININE, serum 0.7 (0.52-1.25); POTASSIUM 3.2 mmol/L (3.4-5.0)
[2019-02-02 07:26] LABS: HEMATOCRIT 29.2 % (37.0-47.0); HEMOGLOBIN 9.6 g/dl (12.5-16.0); MEAN CORPUSCULAR HEMOGLOBIN 34 pg (27.0-31.0)
[2019-02-02 08:13] VITALS: BP 101/62; PULSE 56; TEMP 98.1
--- NOTE | 2019-02-02 09:45 | NUR ---
Patient states she is not passing any gas, is not nauseated, "feels like everything has just stopped", bloated/distended, bowel sounds present in RUQ, but silent in other quadrants, still complaining of abdominal pain. Still requesting pain meds every 3 hrs.
[2019-02-02 11:42] VITALS: BP 114/66; PULSE 53; TEMP 98
--- NOTE | 2019-02-02 12:05 | NUR ---
Patient requested to speak with the PA\\Hospitalist regarding being taken off her Dilauded. She is very unhappy and insisted on speaking with her "now". PA was notified and she said she would discuss it with her after rounds. Patient was notified and insisted again on speaking with her "now" or she would "check herself out of this hospital". GUILLERMINA was notified. She was given her Bentyl and Percocet per orders. Pain assessment was done 20 minutes later and she said it had not given her any relief. Lucase applied hot packs to her abdomen for pain relief. She had no other requests at this time. Call light was within reach.
--- NOTE | 2019-02-02 16:13 | NUR ---
Doctor ordered a one time Dilaudid for pain and it was given. Patient was happier and stated her pain was "better already". Her initial pain rating was a 9/10 to 10/10. She was resting in bed. was at bedside.
[2019-02-02 16:35] VITALS: BP 101/60; PULSE 49; TEMP 97.1
--- NOTE | 2019-02-02 18:45 | NUR ---
Patient continues to be upset about her pain med orders. Her medication was administered according to orders. Potassium was administered according to protocol. She was instructed that the on-call physician would be notified regarding her pain meds. at bedside. Call light within reach. She stated her pain had been relieved some by the Dilaudid.
[2019-02-02 19:15] VITALS: BP 103/66; PULSE 47; TEMP 97.6
[2019-02-02 23:42] VITALS: BP 105/84; PULSE 61; TEMP 98.8
[2019-02-03 00:03] LABS: FOLATE (FOLIC ACID) 8.5 ng/mL (7.0-31.4)
[2019-02-03 04:16] VITALS: BP 108/65; PULSE 47; TEMP 97.8
[2019-02-03 07:51] LABS: BASO # 0.1 (0.0-0.2); BASO % 1.8 % (0.0-2.0); EOS # 0.4 (0.0-0.7); EOS % 5.1 % (0-4.0); GRAN # 3.8 (1.4-6.5); GRAN % 50.4 % (42.2-75.2); HEMOGLOBIN 10.2 g/dl (12.5-16.0); LYMPH # 2.8 (1.2-3.4); LYMPH % 36.1 % (20.0-51.0); MEAN CELL VOLUME 103 fl (80.0-100.0); MEAN CORPUSCULAR HEMOGLOBIN 35 pg (27.0-31.0); MEAN CORPUSCULAR HGB CONC 34 g/dl (33.0-37.0); MEAN PLATELET VOLUME 10.5 fl (7.4-10.4); MONO # 0.4 (0.1-0.6); MONO % 5.2 % (1.7-9.3); PLATELET COUNT 369 K/mm3 (130-400); RED BLOOD COUNT 2.95 M/mm3 (4.10-5.30)
[2019-02-03 07:58] LABS: HEMATOCRIT 30.4 % (37.0-47.0)
[2019-02-03 08:03] LABS: C-REACTIVE PROTEIN 1.3 mg/dL (0.0-0.9); CALCIUM 7.7 mg/dL (8.4-10.2); CREATININE, serum 0.8 (0.52-1.25); POTASSIUM 3.5 mmol/L (3.4-5.0)
[2019-02-03 08:14] VITALS: BP 99/70; PULSE 48; TEMP 98
[2019-02-03 12:01] VITALS: BP 112/72; PULSE 55; TEMP 99
--- NOTE | 2019-02-03 15:08 | NUR ---
F/U: This SW received a frantic call from patients sister Catalina Morris ([phone]) who indicated that the patient was in a lot of pain and not receiving appropriate care. SW went to Patients room where she reported concerns. SW spoke with Patients nurse, who corrdinated with the DR to have more tests completed. SW and nurse went to patients room and discussed actions with her. Patient seemed receptive to treatment plan conveyed.
[2019-02-03 16:38] VITALS: BP 105/67; PULSE 47; TEMP 98.3
[2019-02-03] MEDS ORDERED: FIORICET 325 MG1 TA1 PO (20:50)
--- NOTE | 2019-02-03 21:50 | NUR ---
2000: In patients room giving pain medication. Patient states "I want my pain medication back the way it was before yesterday or I am leaving. You have one hour to make it happen". Call to Tanika LORENZ notified of patient request. Tanika to come to floor to see patient. Attempted to discuss with patient risk of leaving agaonst medical advice. Patient left at 2145. Encouraged to establish and follow up with a primary care. Return as needed. All personal belongings sent with patient.
== END 2019-02-03 21:45 | disposition left against medical advice (07) | DRG 395 ==
LOC: COL.ER 17:00 → MEDICAL 21:24
PROVIDERS: Emergency Medicine; Internal Medicine Gastroenterology; Nurse Practitioner Family; Physician Assistant; ADMIT Internal Medicine
PROC: 0DBN8ZX Excision of Sigmoid Colon, Via Natural or Artificial Opening Endoscopic, Diagnostic (ICD-10-PCS; principal; 2019-02-01 08:00)
PROC: 0DJ08ZZ Inspection of Upper Intestinal Tract, Via Natural or Artificial Opening Endoscopic (ICD-10-PCS; 2019-02-01 08:00)
DX: K55.9 Vascular disorder of intestine, unspecified (principal); K52.9 Noninfective gastroenteritis and colitis, unspecified; K64.0 First degree hemorrhoids; K59.04 Chronic idiopathic constipation; K25.7 Chronic gastric ulcer without hemorrhage or perforation; G89.29 Other chronic pain; M54.9 Dorsalgia, unspecified; G43.909 Migraine, unspecified, not intractable, without status migrainosus; G40.909 Epilepsy, unspecified, not intractable, without status epilepticus; N31.9 Neuromuscular dysfunction of bladder, unspecified; F17.210 Nicotine dependence, cigarettes, uncomplicated; J06.9 Acute upper respiratory infection, unspecified; I34.1 Nonrheumatic mitral (valve) prolapse; K25.9 Gastric ulcer, unspecified as acute or chronic, without hemorrhage or perforation; B37.3 Candidiasis of vulva and vagina; B34.8 Other viral infections of unspecified site; R33.9 Retention of urine, unspecified; E03.9 Hypothyroidism, unspecified; Z53.21 Procedure and treatment not carried out due to patient leaving prior to being seen by health care provider; D50.0 Iron deficiency anemia secondary to blood loss (chronic); Z90.49 Acquired absence of other specified parts of digestive tract; Z90.710 Acquired absence of both cervix and uterus
CPT/HCPCS: 99222-AI; 99232-AI; 99233-AI; 99239; C9113; J0500; J0744; J1170; J2212; J2270; J2405; J2550; J2704; J2765; J3010; J3480; J7030; J7120; Q9967

== ENCOUNTER 2023-08-05 16:43 | Emergency (ER) | payer SELFPAY ==
[~2023-08-05] VITALS: Ht 172.7 cm; Wt 75.0 kg
[~2023-08-05 16:43] MED LIST changes: +EXCEDRIN1 TAB PO; +FIORICET 325 MG1 TA1 PO
[2023-08-05 16:45] VITALS: TEMP 98.6
[2023-08-05] MEDS ORDERED: levETIRAcetam 100 ML IV ONE (17:00)
[2023-08-05 17:09] LABS: BASO # 0.2 K/mm3 (0.0-0.2); BASO % 1.4 % (0.0-2.0); EOS # 0.4 K/mm3 (0.0-0.7); EOS % 3.8 % (0.0-4.0); GRAN # 5.6 K/mm3 (1.4-6.5); GRAN % 54.1 % (42.2-75.2); HEMATOCRIT 42.6 % (37.0-47.0); HEMOGLOBIN 14.6 g/dl (12.5-16.0); LYMPH # 3.5 K/mm3 (1.2-3.4); LYMPH % 33.9 % (20.0-51.0); MEAN CELL VOLUME 96 fl (80.0-100.0); MEAN CORPUSCULAR HEMOGLOBIN 33 pg (27-31); MEAN CORPUSCULAR HGB CONC 34 g/dl (33.0-37.0); MEAN PLATELET VOLUME 10.5 fl (7.4-10.4); MONO # 0.7 K/mm3 (0.1-0.6); MONO % 6.4 % (1.7-9.3); PLATELET COUNT 408 K/mm3 (130-400); RED BLOOD COUNT 4.42 M/mm3 (4.10-5.30); REDCELL DISTRIBUTION WIDTH-CV 12.9 % (11.5-14.5)
[2023-08-05 17:11] LABS: COLLECTION METHOD CATHETER
[2023-08-05 17:17] LABS: ALBUMIN 4.1 g/dL (3.5-5.0); BILIRUBIN,TOTAL 0.2 mg/dL (0.2-1.2); CREATININE, serum 1.17 mg/dL (0.57-1.11); POTASSIUM 4.3 mEq/L (3.5-4.5); TOTAL PROTEIN 7.1 g/dl (6.2-8.1)
[2023-08-05 17:23] LABS: URINE APPEARANCE TURBID (CLEAR/HAZY); URINE BLOOD 2+ (NEGATIVE); URINE COLOR Dark Yellow (YELLOW); URINE GLUCOSE NEGATIVE (NEGATIVE); URINE KETONE TRACE (NEGATIVE); URINE NITRATE NEGATIVE (NEGATIVE); URINE PROTEIN(semi-quant) 1+ (NEGATIVE)
[2023-08-05 18:04] LABS: URINE RBC 0-2 /hpf (0-2)
[2023-08-05 18:05] LABS: URINE BACTERIA MANY /hpf (NONE SEEN)
[2023-08-05] MEDS ORDERED: LR 1,000 ML IV ONE (18:30)
[2023-08-05] MEDS ORDERED: KEPPRA 500MG500 MG PO (19:57)
[2023-08-05 19:59] VITALS: BP 115/87; PULSE 74
== END 2023-08-05 20:06 | disposition home or self-care (01) ==
LOC: COL.ER 16:43
PROVIDERS: Emergency Medicine
DX: G40.909 Epilepsy, unspecified, not intractable, without status epilepticus (principal)
CPT/HCPCS: J1953; J7120